=== PATIENT | male | born 1970 | race Two or more races ===

== ENCOUNTER → 2017-01-17 | Outpatient (REF) | payer OTHER ==
[2017-01-17 20:17] LABS: BASO % 0.9 % (0.0-1.0); EOS % 1.2 % (0.0-3.0); LARGE UNSTAINED CELL # 0.1 K/mm3 (0.0-0.4); LARGE UNSTAINED CELL % 4.2 % (0.0-4.0); LYMPH % 30.3 % (24.0-44.0); MEAN CORPUSCULAR HEMOGLOBIN 31.4 pg (27.0-33.0); MEAN CORPUSCULAR HGB CONC 34.1 g/dl (32.0-36.5); MEAN CORPUSCULAR VOLUME 92.1 fl (80.0-96.0); MONO # 0.2 K/mm3 (0.0-0.8); MONO % 5.3 % (0.0-5.0); NEUTROPHILS # 1.9 K/mm3 (1.8-7.7); NEUTROPHILS % 58.1 % (36.0-66.0); PLATELET COUNT, AUTOMATED 214 k/mm3 (150-450); RED CELL DISTRIBUTION WIDTH 12.2 % (11.5-14.5); WHITE BLOOD COUNT 3.2 K/mm3 (4.0-10.0)
[2017-01-21 00:07] LABS: Lyme Disease IgG Ab 18 kDa Ban Absent (.); Lyme Disease IgG Ab 23 kDa Ban Absent (.); Lyme Disease IgG Ab 28 kDa Ban Absent (.); Lyme Disease IgG Ab 30 kDa Ban Absent (.); Lyme Disease IgG Ab 39 kDa Ban Present (.); Lyme Disease IgG Ab 41 kDa Ban Present (.); Lyme Disease IgG Ab 45 kDa Ban Present (.); Lyme Disease IgG Ab 58 kDa Ban Absent (.); Lyme Disease IgG Ab 66 kDa Ban Present (.); Lyme Disease IgG Ab 93 kDa Ban Absent (.); Lyme Disease IgG West Blot Int Negative (.); Lyme Disease IgG/IgM Antibodie 2.56 ISR (0.00-0.90); Lyme Disease IgM Ab 23 kDa Ban Present (.); Lyme Disease IgM Ab 39 kDa Ban Present (.); Lyme Disease IgM Ab 41 kDa Ban Present (.); Lyme Disease IgM West Blot Int Positive (.)
== END ==
LOC: M SFHCLERA 17:33
PROVIDERS: ATTEND Nurse Practitioner Family
DX: R21 Rash and other nonspecific skin eruption (principal)

== ENCOUNTER → 2021-04-04 | Outpatient (CLI) | payer OTHER | LOC: M LABSMTC 09:39 | PROVIDERS: ATTEND Anesthesiology | DX: Z01.818 Encounter for other preprocedural examination (principal); Z11.52 Encounter for screening for COVID-19 ==

== ENCOUNTER 2021-04-09 09:32 | Day surgery (SDC) | payer OTHER ==
[~2021-04-09] VITALS: Ht 180.3 cm; Wt 79.8 kg
--- OUTSIDE RECORDS SUMMARY | 2021-04-09 09:36 | CCD | Continuity of Care Document ---
Author Author Michael AGUIRRE Organization Unknown Address [address] [facility], [address] [place] [address] Phone [phone] Care Team Providers Care Coat Ironer Hand Name Role Phone Tomi Mohan AUTM [phone] Ada Schmidt D.O. AUTM Problems Description No Information Available Social History Type Date Description Comments Sex Unknown ETOH Use 1-2 A Day Recreational Drug Use Denies Drug Use Tobacco Use Start: Unknown Denies Smoking Allergies, Adverse Reactions, Alerts Description No Known Drug Allergies Medications Description No Active Medications Immunizations Description No Information Available Vital Signs Date Vital Result Comment 02/03/2021 11:10am BP Systolic 138 mmHg BP Diastolic 84 mmHg Body Temperature 99.3 F Height 72 inches 6'0" Weight 181.50 lb BMI (Body Mass Index) 24.6 kg/m2 [place] Body Weight 160 lb Weight 82.328 kg BSA (Body Surface Area) 2.04 m2 Results Description No Information Available Procedures Description No Information Available Medical Devices Description No Information Available Encounters Description No Information Available Assessments Date Code Description Provider 02/03/2021 Z12.11 Encounter for screening for yoon gnant neoplasm of colon NAINA Ramirez Plan of Treatment Future Appointment(s):* 04/23/2021 9:45 am - NAINA Ramirez at [facility] * 04/09/2021 11:15 am - Rafi Kern JR, MD at [facility] 02/03/2021 - NAINA Ramirez* Z12.11 Encounter for screening for malignant neoplasm of colon Functional Status Description No Information Available Mental Status Description No Information Available Referrals Refer to Reason for Referral Status Appt Date Rafi Kern JR, MD SCHED COLONOSCOPY Scheduled 02/[address] [address] [phone] Rafi Kern JR, MD COLONOSCOPY Created [address] [address] [phone]
--- OUTSIDE RECORDS SUMMARY | 2021-04-09 09:36 | CCD | Continuity of Care Document ---
Author Author Michael AGUIRRE Organization Unknown Address [address] [facility], [address] [place] [address] Phone [phone] Care Team Providers Care Regulatory Law Specialist Name Role Phone Tomi Mohan AUTM [phone] Ada Schmidt D.O. AUTM [phone] Problems Description No Information Available Social History [...] lb BMI (Body Mass Index) 24.6 kg/m2 [place] Body Weight 160 lb Weight 82.328 kg [...] 04/23/2021 9:45 am - NAINA Ramirez at [facility] * 04/09/2021 11:15 am - Rafi Kern JR, MD at [facility] 02/03/2021 - NAINA Ramirez* Z12.11 Encounter for screening for malignant neoplasm of colon Functional Status Description No Information Available Mental Status Description No Information Available Referrals Refer to Reason for Referral Status Appt Date Rafi Kern JR, MD SCHED COLONOSCOPY Scheduled 02/[address] [address] [phone] Rafi Kern JR, MD COLONOSCOPY Created [address] [address] [phone]
--- OUTSIDE RECORDS SUMMARY | 2021-04-09 09:36 | CCD ---
Continuity of Care Document (CCD) Created on: 02/03/2021 EllisMichael dela cruz External Reference #: [id number] : [id number] Sex: Female Author Author Michael AGUIRRE Organization Unknown Address [address] [facility], [address] [place] [address] Phone [phone] Care Team Providers Care Telesales Consultant Name Role Phone Tomi Mohan AUTM [phone] Ada Schmidt D.O. AUTM [phone] Problems Description No Information Available Social [...] lb BMI (Body Mass Index) 24.6 kg/m2 [place] Body Weight 160 lb Weight 82.328 kg [...] 04/23/2021 9:45 am - NAINA Ramirez at [facility] * 04/09/2021 11:15 am - Rafi Kern JR, MD at [facility] 02/03/2021 - NAINA Ramirez* Z12.11 Encounter for screening for malignant neoplasm of colon Functional Status Description No Information Available Mental Status Description No Information Available Referrals Refer to Reason for Referral Status Appt Date Rafi Kern JR, MD SCHED COLONOSCOPY Scheduled 02/[address] [address] [phone] Rafi Kern JR, MD COLONOSCOPY Created [address] [address] [phone]
--- OUTSIDE RECORDS SUMMARY | 2021-04-09 09:36 | CCD | Continuity of Care Document ---
Author Author Michael WEN D.O. Organization Unknown Address [address] [place] [address] Phone [phone] Care Team Providers Care Freight Receiver Name Role Phone Rafi Kern M.D. AUTM [phone] Problems Description No Information Available Social History Type Date Description Comments Sex Unknown Tobacco Use Start: Unknown Current Smokeless Tobacco User, Uses Occasionally ETOH Use Consumed 1 six pack of beer per week in the past Recreational Drug Use Denies Drug Use Tobacco Use Start: Unknown Patient has never smoked Smoking Status Reviewed: 01/19/21 Patient has never smoked Sun Exposure Does not use sunscreen Seat Belt/Car Seat Always uses seat belt Allergies, Adverse Reactions, Alerts Description No Known Drug Allergies Medications Description No Active Medications Immunizations Description No Information Available Vital Signs Date Vital Result Comment 01/19/2021 8:59am BP Systolic 130 mmHg BP Diastolic 80 mmHg Height 70.5 inches 5'10.50" Weight 184.00 lb BMI (Body Mass Index) 26.0 kg/m2 Heart Rate 69 /min Respiratory Rate 12 /min Body Temperature 97.5 F O2 % BldC Oximetry 98 % [place] Body Weight 166 lb 07/22/2020 9:19am BP Systolic 130 mmHg BP Diastolic 74 mmHg Height 70.5 inches 5'10.50" Weight 191.00 lb BMI (Body Mass Index) 27.0 kg/m2 Heart Rate 79 /min Respiratory Rate 18 /min Body Temperature 97.1 F O2 % BldC Oximetry 98 % [place] Body Weight 166 lb Results Test Acquired Date Facility Test Result H/L Range Note Coronavirus 2019 Nasopharygeal 04/04/2021 [facility] Outpa tient Testing (Registration) [address] [place], [place] [id number] [phone] Coronavirus 2019 Nasopharygeal ASSAY INFORMATIO <SEE N OTE> 1 1 ASSAY INFORMATION: Real Time RT-PCR NOTE: The COVID-19 assay has been cleared by the U.S. Food and Drug Administration under the Emergency Use Authorization (EUA). [employer] and [employer] are designated as high complexity laboratories by the Clinical Laboratory Improvement Amendments of 1988(CLIA) and are qualified to perform this test. Not Detected Procedures Date Code Description Status 01/19/2021 73880 Preventive Visit Est 40-64 Yrs C ompleted Medical Devices Description No Information Available Encounters Type Date Location Provider Dx Diagnosis Office Visit 01/19/2021 9:00a [facility] NAINA Brooks Z00.00 Encntr for general adult med ical exam w/o abnormal findings Z12.11 Encounter for screening for malignant neoplasm of colon Assessments Date Code Description Provider 01/19/2021 Z00.00 Encounter for genera l adult medical examination without abnormal findings NAINA Brooks 01/19/2021 Z12.11 Encounter for screening for yoon gnant neoplasm of colon NAINA Brooks Plan of Treatment Future Appointment(s):* 01/20/2022 8:00 am - NAINA Brooks at [facility] 01/19/2021 - NAINA Brooks* Z00.00 Encounter for general adult medical examination without abnormal findings* Comments:* Your exam was unremarkable today. We will set you up for colonoscopy. Call for any concerns. * Follow up:* Annually. * Z12.11 Encounter for screening for malignant neoplasm of colon* Referral:* Rafi Kern M.D., Surgery,General Functional Status Description No Information Available Mental Status Description No Information Available Referrals Refer to Dr Reason for Referral Status Appt Date Rafi Kern M.D. 50 year old in need of initi al screening colonoscopy. Please eval and treat. Asymptomatic, with no significant family history. Closed 02/03/[address] [place] [address] [phone]
--- OUTSIDE RECORDS SUMMARY | 2021-04-09 09:36 | CCD | Continuity of Care Document ---
Author Author Michael HATCH [place] Organization Unknown Address [address] [place] [address] [address] [place] [address] Phone [phone] Care Team Providers Care Dinkey Motor Operator Name Role Phone Rafi Kern M.D. [facility] [phone] Problems Description No Information Available Social History [...] F O2 % BldC Oximetry 98 % [place] Body Weight 166 lb 07/22/2020 9:19am BP Systolic 130 mmHg BP Diastolic 74 mmHg Height 70.5 inches 5'10.50" Weight 191.00 lb BMI (Body Mass Index) 27.0 kg/m2 Heart Rate 79 /min Respiratory Rate 18 /min Body Temperature 97.1 F O2 % BldC Oximetry 98 % [place] Body Weight 166 lb Results Description No Information Available Procedures Date Code Description Status 01/19/2021 37696 Preventive Visit Est 40-64 Yrs C ompleted Medical Devices Description No Information Available Encounters Type Date Location Provider Dx Diagnosis Office Visit 01/19/2021 9:00a [facility] NAINA Brooks Z00.00 Encntr for general adult [...] 01/20/2022 8:00 am - NAINA Brooks at [facility] 01/19/2021 - NAINA Brooks* Z00.00 Encounter for [...] treat. Asymptomatic, with no significant family history. Sent [address] [address] [phone]
--- OUTSIDE RECORDS SUMMARY | 2021-04-09 09:36 | CCD | Continuity of Care Document ---
Author Author Michael HATCH Organization Unknown Address [address] [place] [address] [address] [place] [address] Phone [phone] Problems Description No Information Available Social History [...] F O2 % BldC Oximetry 98 % [place] Body Weight 166 lb 07/22/2020 9:19am BP Systolic 130 mmHg BP Diastolic 74 mmHg Height 70.5 inches 5'10.50" Weight 191.00 lb BMI (Body Mass Index) 27.0 kg/m2 Heart Rate 79 /min Respiratory Rate 18 /min Body Temperature 97.1 F O2 % BldC Oximetry 98 % [place] Body Weight 166 lb Results Description No Information Available Procedures Description No Information Available Medical Devices Description No Information Available Encounters Description No Information Available Assessments Date Code Description Provider 01/19/2021 Z00.00 Encounter for genera l adult medical examination without abnormal findings NAINA Brooks 01/19/2021 Z12.11 Encounter for screening for yoon gnant neoplasm of colon NAINA Brooks Plan of Treatment Future Appointment(s):* 01/20/2022 8:00 am - NAINA Brooks at [facility] 01/19/2021 - NAINA Brooks* Z00.00 Encounter for [...] treat. Asymptomatic, with no significant family history. Created [address] [address] [phone]
--- OUTSIDE RECORDS SUMMARY | 2021-04-09 09:36 | CCD | Continuity of Care Document ---
Author Author Michael AGUIRRE Organization Unknown Address [address] [facility], [address] [place] [address] Phone [phone] Care Team Providers Care Coring Machine Operator Name Role Phone Tomi Mohan AUTM [phone] Ada Schmidt D.O. AUTM Problems Description No [...] lb BMI (Body Mass Index) 24.6 kg/m2 [place] Body Weight 160 lb Weight 82.328 kg BSA (Body Surface Area) 2.04 m2 Results Description No Information Available Procedures Date Code Description Status 02/03/2021 03573 Office/Outpatient New Low MDM 30 -44 Minutes Completed Medical Devices Description No Information Available Encounters Type Date Location Provider Dx Diagnosis Office Visit 02/03/2021 11:15a [facility] NAINA Moore Z12.11 Encounter for screening for malignant ne oplasm of colon Assessments Date Code Description Provider 02/03/2021 Z12.11 Encounter for screening for yoon gnant neoplasm of colon NAINA Ramirez Plan of Treatment Future Appointment(s):* 04/23/2021 9:45 am - NAINA Ramirez at [facility] * 04/09/2021 11:15 am - Rafi Kern JR, MD at [facility] 02/03/2021 - NAINA Ramirez* Z12.11 Encounter for screening for malignant neoplasm of colon Functional Status Description No Information Available Mental Status Description No Information Available Referrals Refer to Reason for Referral Status Appt Date Rafi Kern JR, MD SCHED COLONOSCOPY Scheduled 02/[address] [address] [phone] Rafi Kern JR, MD COLONOSCOPY Created [address] [address] [phone]
--- OUTSIDE RECORDS SUMMARY | 2021-04-09 09:37 | CCD ---
Author Author [facility] Organization [facility] Address Unknown Phone Unavailable Care Team Providers Care Hand Bulldozer Name Role Phone Marques, Tomi PA Unavailable Unavailable Marques, Tomi PA Unavailable Unavailable Marques, Tomi PA Unavailable Unavailable Marques, Tomi PA Unavailable Unavailable Marques, Tomi PA Unavailable Unavailable Marques, Tomi PA Unavailable Unavailable Marques, Tomi PA Unavailable Unavailable Marques, Tomi PA Unavailable Unavailable Marques, Tomi PA Unavailable Unavailable Marques, Tomi PA Unavailable Unavailable Marques, Tomi PA Unavailable Unavailable Marques, Tomi PA Unavailable Unavailable Marques, Tomi PA Unavailable Unavailable Marques, Tomi PA Unavailable Unavailable Marques, Tomi PA Unavailable Unavailable Marques, Tomi PA Unavailable Unavailable Marques, Tomi PA Unavailable Unavailable Marques, Tomi PA Unavailable Unavailable Marques, Tomi PA Unavailable Unavailable Marques, Tomi PA Unavailable Unavailable Marques, Tomi PA Unavailable Unavailable Marques, Tomi PA Unavailable Unavailable Marques, Tomi PA Unavailable Unavailable Marques, Tomi PA Unavailable Unavailable Marques, Tomi PA Unavailable Unavailable Marques, Tomi PA Unavailable Unavailable Marques, Tomi PA Unavailable Unavailable Marques, Tomi PA Unavailable Unavailable Marques, Tomi PA Unavailable Unavailable Marques, Tomi PA Unavailable Unavailable Marques, Tomi PA Unavailable Unavailable Marques, Tomi PA Unavailable Unavailable Marques, Tomi PA Unavailable Unavailable Marques, Tomi PA Unavailable Unavailable Marques, Tomi PA Unavailable Unavailable Marques, Tomi PA Unavailable Unavailable Marques, Tomi PA Unavailable Unavailable Marques, Tomi PA Unavailable Unavailable Marques, Tomi PA Unavailable Unavailable Marques, Tomi PA Unavailable Unavailable Marques, Tomi PA Unavailable Unavailable Marques, Toim PA Unavailable Unavailable Marques, Tomi PA Unavailable Unavailable Marques, Tomi PA Unavailable Unavailable Marques, Tomi PA Unavailable Unavailable Marques, Tomi PA Unavailable Unavailable Marques, Tomi PA Unavailable Unavailable Marques, Tomi PA Unavailable Unavailable Marques, Tomi PA Unavailable Unavailable Marques, Tomi PA Unavailable Unavailable Marques, Tomi PA Unavailable Unavailable Marques, Tomi PA Unavailable Unavailable Marques, Tomi PA Unavailable Unavailable Marques, Tomi PA Unavailable Unavailable Varghese, L Jennifer RPA Unavailable Unavailable Varghese, L Jennifer RPA Unavailable Unavailable Varghese, L Jennifer RPA Unavailable Unavailable Varghese, L Jennifer RPA Unavailable Unavailable Varghese, L Jennifer RPA Unavailable Unavailable Varghese, L Jennifer RPA Unavailable Unavailable Varghese, L Jennifer RPA Unavailable Unavailable Varghese, L Jennifer RPA Unavailable Unavailable Varghese, L Jennifer RPA Unavailable Unavailable Varghese, L Jennifer RPA Unavailable Unavailable Varghese, L Jennifer RPA Unavailable Unavailable Varghese, L Jennifer RPA Unavailable Unavailable Varghese, L Jennifer RPA Unavailable Unavailable Varghese, L Jennifer RPA Unavailable Unavailable Varghese, L Jennifer RPA Unavailable Unavailable Varghese, L Jennifer RPA Unavailable Unavailable Varghese, L Jennifer RPA Unavailable Unavailable Varghese, L Jennifer RPA Unavailable Unavailable Varghese, L Jennifer RPA Unavailable Unavailable Varghese, L Jennifer RPA Unavailable Unavailable Varghese, L Jennifer RPA Unavailable Unavailable Varghese, L Jennifer RPA Unavailable Unavailable Varghese, L Jennifer RPA Unavailable Unavailable Varghese, L Jennifer RPA Unavailable Unavailable Varghese, L Jennifer RPA Unavailable Unavailable Varghese, L Jennifer RPA Unavailable Unavailable Varghese, L Jennifer RPA Unavailable Unavailable Varghese, L Jennifer RPA Unavailable Unavailable Varghese, L Jennifer RPA Unavailable Unavailable Varghese, L Jnenifer RPA Unavailable Unavailable Varghese, L Jennifer RPA Unavailable Unavailable Varghese, L Jennifer RPA Unavailable Unavailable Marques, Tomi PA Unavailable Unavailable Marques, Tomi PA Unavailable Unavailable Marques, Tomi PA Unavailable Unavailable Marques, Tomi PA Unavailable Unavailable Marques, Tomi PA Unavailable Unavailable Marques, Tomi PA Unavailable Unavailable Marques, Tomi PA Unavailable Unavailable Marques, Tomi PA Unavailable Unavailable Marques, Tomi PA Unavailable Unavailable Marques, Tomi PA Unavailable Unavailable Marques, Tomi PA Unavailable Unavailable Marques, Tomi PA Unavailable Unavailable Marques, Tomi PA Unavailable Unavailable Marques, Tomi PA Unavailable Unavailable Marques, Tomi PA Unavailable Unavailable Marques, Tomi PA Unavailable Unavailable Marques, Tomi PA Unavailable Unavailable Marques, Tomi PA Unavailable Unavailable Marques, Tomi PA Unavailable Unavailable Marques, Tomi PA Unavailable Unavailable Marques, Tomi PA Unavailable Unavailable Marques, Tomi PA Unavailable Unavailable Marques, Tomi PA Unavailable Unavailable Marques, Tomi PA Unavailable Unavailable Marques, Tomi PA Unavailable Unavailable Marques, Tomi PA Unavailable Unavailable Marques, Tomi PA Unavailable Unavailable Marques, Tomi PA Unavailable Unavailable Marques, Tomi PA Unavailable Unavailable Marques, Tomi PA Unavailable Unavailable Marques, Tomi PA Unavailable Unavailable Marques, Tomi PA Unavailable Unavailable Marques, Tomi PA Unavailable Unavailable Marques, Tomi PA Unavailable Unavailable Marques, Tomi PA Unavailable Unavailable Marques, Tomi PA Unavailable Unavailable Marques, Tomi PA Unavailable Unavailable Marques, Tomi PA Unavailable Unavailable Marques, Tomi PA Unavailable Unavailable Marques, Tomi PA Unavailable Unavailable Marques, Tomi PA Unavailable Unavailable Marques, Tomi PA Unavailable Unavailable Marques, Tomi PA Unavailable Unavailable Marques, Tomi PA Unavailable Unavailable Marques, Tomi PA Unavailable Unavailable Marques, Tomi PA Unavailable Unavailable Marques, Tomi PA Unavailable Unavailable Marques, Tomi PA Unavailable Unavailable Marques, Tomi PA Unavailable Unavailable Marques, Tomi PA Unavailable Unavailable Marques, Tomi PA Unavailable Unavailable Marques, Tomi PA Unavailable Unavailable Marques, Tomi PA Unavailable Unavailable Marques, Tomi PA Unavailable Unavailable Re-disclosure Warning The records that you are about to access may contain information from federally-assisted alcohol or drug abuse programs. If such information is present, then the following federally mandated warning applies: This information has been disclosed to you from records protected by federal confidentiality rules (42 CFR part 2). The federal rules prohibit you from making any further disclosure of this information unless further disclosure is expressly permitted by the written consent of the person to whom it pertains or as otherwise permitted by 42 CFR part 2. A general authorization for the release of medical or other information is NOT sufficient for this purpose. The Federal rules restrict any use of the information to criminally investigate or prosecute any alcohol or drug abuse patient.The records that you are about to access may contain highly sensitive health information, the redisclosure of which is protected by Article 27-F of the [facility] Public Health law. If you continue you may have access to information: Regarding HIV / AIDS; Provided by facilities licensed or operated by the [facility] Office of Mental Health; or Provided by the [facility] Office for People With Developmental Disabilities. If such information is present, then the following [facility] mandated warning applies: This information has been disclosed to you from confidential records which are protected by state law. State law prohibits you from making any further disclosure of this information without the specific written consent of the person to whom it pertains, or as otherwise permitted by law. Any unauthorized further disclosure in violation of state law may result in a fine or mcfp sentence or both. A general authorization for the release of medical or other information is NOT sufficient authorization for further disc losure. Family History Family Member Name Family Member Gender Family Member Status Date o f Status Description Data Source(s) Unknown Male Problem [facility] ([facility]) Encounters Encounter Providers Location Date Indications Data Source(s ) Outpatient Attender: Jennifer Pineda/George/Marcia price 02/03/2021 11:15:00 AM EDT [facility] ([facility] Outpatient Attender: Tomi CHEW Family Medicine [facility] 01/19/2021 09:00:00 AM EDT [facility] ([facility]) Outpatient Attender: Tomi CHEW Family Medicine [facility] 07/22/2020 08:20:00 AM EST [facility] ([facility]) Outpatient Attender: Tomi Mohan PAConsultant: Tomi CHEW 05/07/2020 12:07:00 PM EST - 05/07/2020 01:07:[address] [facility] Outpatient Attender: Tomi CHEW Family Medicine [facility] 04/28/2020 01:40:00 PM EST [facility] ([facility]) Immunizations Vaccine Date Status Description Data Source(s) COVID-19 VACCINE Moderna 09/04/2020 12:00:00 AM EST completed [facility] Vaccine Series Complete: YESThis Data wa s Submitted to [facility] Via [employer]. COVID-19 VACCINE Moderna 08/07/2020 12:00:00 AM EST completed [facility] Vaccine Series Complete: NOThis Data was Submitted to [facility] [employer]. Medications Medication Brand Name Start Date Product Form Dose Route Admi nistrative Instructions Pharmacy Instructions Status Indications Reaction Description Data Source(s) Doxycycline Monohydrate 100 MG Oral Capsule Doxycycline [place] hydrate 05/11/2020 12:00:00 AM EST ORAL completed [facility] ([facility]) Insurance Providers Payer name Policy type / Coverage type Policy ID Covered democrat ID Covered democrat's relationship to soni Policy Soni Plan Information UMR [facility] [id number] [place]2 [id number] [employer] [id number] [place] [id number] [employer] [id number] [place] [id number] UMR -O/P [id number] 01 [id number] [employer] [id number] SPO [id number] [employer] [id number] [place] [id number] [employer] PPO O [id number] P [id number] [employer] [id number] [place]2 [id number] [facility] [id number] S [id number] [facility] [id number] S [id number] Problems, Conditions, and Diagnoses Code Display Name Description Problem Type Effective Dates Data Source(s) [id number] Encounter for screening for lipoid disor ders Encounter for screening for lipoid disorders Diagnosis 05/07/2020 12:07:00 PM [facility] Z125 Encounter for screening for malignant ne oplasm of prostate Encounter for screening for malignant neoplasm of prostate Diagnosis 0 12:07:00 PM [facility] Z131 Encounter for screening for diabetes violet litus Encounter for screening for diabetes mellitus Diagnosis 05/07/2020 12:07:00 PM [facility] [id number] Pain in right knee Pain in right knee Diagnosis 04/2020 12:07:00 PM EST [facility] Surgeries/Procedures Procedure Description Date Indications Data Source(s) OFFICE OUTPATIENT NEW 30 MINUTES 02/03/2021 12:00:00 A M EDT [facility] ([facility], ) PERIODIC PREVENTIVE MED EST PATIENT 40-64YRS 12:00:00 AM EDT [facility] ([facility]) Results ID Date Data Source [id number] 04/04/2021 09:30:00 AM EDT [facility] ([facility]) Name Value Range Interpretation Code Description Data Karissa rce(s) Supporting Document(s) Coronavirus 2019 Nasopharygeal Laboratory test result [facility] ([facility]) ASSAY INFORMATION: Real Time RT-PCR NOTE: The COVID-19 assay has been cleared by the U.S. Food and Drug Administration under the Emergency Use Authorization (EUA). [facility] and [facility] are designated as high complexity laboratories by the Clinical Laboratory Improvement Amendments of 1988(CLIA) and are qualified to perform this test. Not Detected ID Date Data Source [id number] 05/07/2020 02:30:00 PM EST [facility] ([facility]) Name Value Range Interpretation Code Description Data Karissa rce(s) Supporting Document(s) Urate [Mass/volume] in Serum or Plasma Laboratory test result [facility] ([facility]) ID Date Data Source [id number] 05/07/2020 12:13:00 PM EST [facility] ([facility]) Name Value Range Interpretation Code Description Data Karissa rce(s) Supporting Document(s) IgG P93 Ab. Laboratory test result M [facility] ([facility]) Lyme Disease Ab, Quant,IgM 1.27 index 0.00-0.79 Above high normal [facility] ([facility]) <content>Negative <0.80</content >
<content>Equivocal 0.80 - 1.19</content>
<content>Positive >1.19</content>
<content>IgM levels may peak at 3-6 weeks post infection, then</content>
<content>gradually decline.</content>
<content></content> Lyme IgG/IgM Ab 1.01 ISR 0.00-0.90 Above high normal [place] ([facility]) <content>Negative <0.91</content >
<content>Equivocal 0.91 - 1.09</content>
<content>Positive >1.09</content>
<content></content> IgG P66 Ab. Laboratory test result [facility] ([facility]) IgG P58 Ab. Laboratory test result Abnormal (applies to non-numeric results) [facility] ([facility]) IgG P45 Ab. Laboratory test result [facility] ([facility]) IgG P41 Ab. Laboratory test result Abnormal (applies to non-numeric results) [facility]) IgG P39 Ab. Laboratory test result Abnormal (applies to non-numeric results) [facility]) IgG P30 Ab. Laboratory test result [facility] ([facility]) IgG P28 Ab. Laboratory test result [facility] ([facility]) IgG P23 Ab. Laboratory test result [facility] ([facility]) IgM P41 Ab. Laboratory test result [facility] ([facility]) IgG P18 Ab. Laboratory test result Abnormal (applies to non-numeric results) [facility] ([facility]) Laboratory test finding (navigational concept) Laboratory test result [facility] ([facility]) Positive: 5 of the following Borrelia-specific bands: 18,23,28,30,39,41,45,58, 66, and 93. Negative: No bands or banding patterns which do not meet positive criteria. Laboratory test finding (navigational concept) Laboratory test result [facility] ([facility]) Note: An equivocal or positive EIA resul t followed by a negative Line Blot result is considered NEGATIVE. An equivocal or positive EIA result followed by a positive Line Blot is considered POSITIVE by the CDC. Positive: 2 of the following bands: 23,39 or 41 Negative: No bands or banding patterns which do not meet positive criteria. Criteria for positivity are those recommended by CDC/ASTPHLD. p23=Osp C, [id number] Note: Sera from individuals with the following may cross react in the Lyme Line Blot assays: other spirochetal diseases (periodontal disease, leptospirosis, relapsing fever, yaws, and pinta); connective autoimmune (Rheumatoid Arthritis and Systemic Lupus Erythematosus and also individuals with Antinuclear Antibody); other infections ([place] Spotted Fever; Blanca-Weber Virus, and Cytomegalovirus). IgM P39 Ab. [facility] IgM P23 Ab. Laboratory test result Abnormal (applies to non-numeric results) [facility]) ID Date Data Source [id number] 05/07/2020 12:13:00 PM [facility]) Name Value Range Interpretation Code Description Data Karissa rce(s) Supporting Document(s) Prostate Specific Ag,Serum 0.5 ng/mL 0.0-4.0 [facility]) Michelle ECLIA methodology. According to the [employer] [place] [employer], Serum PSA should decrease and remain at undetectable levels after radical prostatectomy. The AUA defines biochemical recurrence as an initial PSA value 0.2 ng/mL or greater followed by a subsequent confirmatory PSA value 0.2 ng/mL or greater. Values obtained with different assay methods or kits cannot be used interchangeably. Results cannot be interpreted as absolute evidence of the presence or absence of malignant disease. Laboratory test finding (navigational concept) Laboratory test result [facility]) The percent free PSA is performed on a r eflex basis only when the total PSA is between 4.0 and 10.0 ng/mL. ID Date Data Source [id number] 05/09/2020 09:02:00 PM [facility] Name Value Range Interpretation Code Description Data Karissa rce(s) Supporting Document(s) Borrelia burgdorferi IgG+IgM Ab [Units/volume] in Serum 1.01 ISR 0. 00-0.[address] [facility] Negative <0.91 Equivocal 0.91 - 1.09 Positive >1.09 Borrelia burgdorferi IgM Ab [Units/volume] in Serum by Immun oassay 1.27 index 0.00-0.[address] [facility] Negative <0.80 Equivocal 0.80 - 1.19 Positive >1.19 IgM levels may peak at 3-6 weeks post infection, then gradually decline. Borrelia burgdorferi 93kD IgG Ab [Presence] in Serum by Immu noblot (IB) Absent [facility] Borrelia burgdorferi 66kD IgG Ab [Presence] in Serum by Immu noblot (IB) Absent [facility] Borrelia burgdorferi 58kD IgG Ab [Presence] in Serum by Immu noblot (IB) Present A [facility] Borrelia burgdorferi 45kD IgG Ab [Presence] in Serum by Immu noblot (IB) Absent [facility] Borrelia burgdorferi 41kD IgG Ab [Presence] in Serum by Immu noblot (IB) Present A [facility] Borrelia burgdorferi 39kD IgG Ab [Presence] in Serum by Immu noblot (IB) Present A [facility] Borrelia burgdorferi 30kD IgG Ab [Presence] in Serum by Immu noblot (IB) Absent [facility] Borrelia burgdorferi 28kD IgG Ab [Presence] in Serum by Immu noblot (IB) Absent [facility] Borrelia burgdorferi 23kD IgG Ab [Presence] in Serum by Immu noblot (IB) Absent [facility] Borrelia burgdorferi 18kD IgG Ab [Presence] in Serum by Immu noblot (IB) Present A [facility] Borrelia burgdorferi Ab.IgG band pattern [Interpretation] in Serum by Immunoblot (IB) Negative [facility] Posi tive: 5 of the following Borrelia-specific bands: 18,23,28,30,39,41,45,58, 66, and 93. Negative: No bands or banding patterns which do not meet positive criteria. Borrelia burgdorferi 41kD IgM Ab [Presence] in Serum by Immu noblot (IB) Absent [facility] Borrelia burgdorferi 39kD IgM Ab [Presence] in Serum by Immu noblot (IB) Absent [facility] Borrelia burgdorferi 23kD IgM Ab [Presence] in Serum by Immu noblot (IB) Present A [facility] Borrelia burgdorferi Ab.IgM band pattern [Interpretation] in Serum by Immunoblot (IB) Negative [facility] Note: An equivocal or positive EIA resul t followed by a negativeLine Blot result is considered NEGATIVE. An equivocal or positiveEIA result followed by a positive Line Blot is considered POSITIVEby the CDC.Positive: 2 of the following bands: 23,39 or 41Negative: No bands or banding patterns which do not meet positivecriteria.Criteria for positivity are those recommended by CDC/ASTPHLD.p23=Osp C, r44=[id number]:Sera from individuals with the following may cross react in theLyme Line Blot assays: other spirochetal diseases (periodontaldisease, leptospirosis, relapsing fever, yaws, and pinta);connective autoimmune (Rheumatoid Arthritis and Systemic LupusErythematosus and also individuals with Antinuclear Antibody);other infections ([place] Spotted Fever; Blanca-Weber Virus,and Cytomegalov irus). ID Date Data Source [id number] 05/08/2020 03:14:00 PM [facility] Name Value Range Interpretation Code Description Data Karissa rce(s) Supporting Document(s) Prostate specific Ag [Mass/volume] in Serum or Plasma 0.5 ng/mL 0.0- 4.0 [facility] Faveous ECLIA methodology.According to the [employer] [place] [employer], Serum PSA shoulddecrease and remain at undetectable levels after radicalprostatectomy. The AUA defines biochemical recurrence as an initialPSA value 0.2 ng/mL or greater followed by a subsequent confirmatoryPSA value 0.2 ng/mL or greater.Values obtained with different assay methods or kits cannot be usedinterchangeably. Results cannot be interpreted as absolute evidenceof the presence or absence of malignant disease. Reflex Criteria COMMENT [facility] The percent free PSA is performed on a r eflex basis only when thetotal PSA is between 4.0 and 10.0 ng/mL. ID Date Data Source [id number] 05/07/2020 01:16:00 PM [facility] Name Value Range Interpretation Code Description Data Karissa rce(s) Supporting Document(s) Thyrotropin [Units/volume] in Serum or Plasma by Detec tion limit <= 0.05 mIU/L 1.26 uIU/mL 0.47 - 5.01 [facility] ID Date Data Source [id number] 05/07/2020 01:16:00 PM [facility] Name Value Range Interpretation Code Description Data Karissa rce(s) Supporting Document(s) Thyroxine (T4) free index in Serum or Plasma by calculation 1.23 NG/DL 0.93 - 1.70 [facility] ID Date Data Source [id number] 05/07/2020 01:04:[address] [facility] Name Value Range Interpretation Code Description Data Karissa rce(s) Supporting Document(s) Urate [Mass/volume] in Serum or Plasma 4.9 MG/DL 2.5 - 8.5 [facility] ID Date Data Source [id number] 05/07/2020 01:04:00 PM [facility] Name Value Range Interpretation Code Description Data Karissa rce(s) Supporting Document(s) COMPREHENSIVE METABOLIC PANEL [facility] COMPREHENSIVE METABOLIC PANEL Sodium [Moles/volume] in Serum or Plasma 139 mEq/L 134 - 153 [facility] Potassium [Moles/volume] in Serum or Plasma 4.4 mEq/L 3.6 - 5.0 [facility] Chloride [Moles/volume] in Serum or Plasma 102 mEq/L 98 - 107 [facility] Carbon dioxide, total [Moles/volume] in Serum or Plasma 31 MEQ/L 22 - [address] [facility] Glucose [Mass/volume] in Serum or Plasma 101 MG/DL 65 - 110 [facility] BUN 14 MG/DL 7 - 21 [facility] al Creatinine [Mass/volume] in Serum or Plasma 0.8 MG/DL 0.7 - 1.5 [facility] BUN/CREAT 18 8 - 27 [facility] Protein [Mass/volume] in Serum or Plasma 7.1 G/DL 6.3 - 8.2 [facility] Albumin [Mass/volume] in Serum or Plasma 4.8 G/DL 3.9 - 5.0 [facility] Globulin [Mass/volume] in Serum by calculation 2.3 GM/DL 2.4 - 3.[address] [facility] A/G RATIO 2.1 0.8 - 2.0 H [facility] Calcium [Mass/volume] in Serum or Plasma 9.7 MG/DL 8.4 - 10.2 [facility] Bilirubin.total [Mass/volume] in Serum or Plasma <0.7 MG/DL 0.2 - 1.3 [facility] Alkaline phosphatase [Enzymatic activity/volume] in Serum or Plasma 63 U/L 38 - 126 [facility] Aspartate aminotransferase [Enzymatic activity/volume] in Serum or Plasma 15 U/L 5 - 40 [facility] Alanine aminotransferase [Enzymatic activity/volume] in Seru m or Plasma 13 U/L 7 - 56 [facility] Anion gap 3 in Serum or Plasma 6.0 mmol/L 8.0 - 16.[address] [facility] AGE 49 yrs [facility] al NON-AA GFR >60 mL/min [facility] ital AFR AMER GFR >60 mL/min [facility] Male GFR In terprentation 20-49 yrs >60 mL/min Normal 50-59 yrs >56 mL/min Normal 60-69 yrs >49 mL/min Normal 70-79yrs >42 mL/min Normal 80 and above >35 mL/min Normal Female GFR Interpretation 20-39 yrs >60 mL/min Normal 40-49 yrs >58 mL/min Normal 50-59 yrs >51 mL/min Normal 60-69 yrs >45 mL/min Normal 70-79 yrs >39 mL/min Normal 80 and above >32 mL/min Normal ID Date Data Source [id number] 05/07/2020 01:04:[address] [facility] Name Value Range Interpretation Code Description Data Karissa rce(s) Supporting Document(s) CVE PANEL [facility] LIPID PANEL Cholesterol [Mass/volume] in Serum or Plasma 209 MG/DL 131 - [address] [facility] Deprecated Triglyceride [Mass/volume] in Serum or Plasma 101 MG/DL 3 5 - 160 [facility] HDL 61 MG/DL 29 - 86 [facility] al Cholesterol in LDL [Mass/volume] in Serum or Plasma by Direc t assay 128 mg/dL 65 - 175 [facility] Cholesterol.total/Cholesterol in HDL [Mass Ratio] in Serum o r Plasma 3.4 3.4 - 4.[address] [facility] LDL/HDL 2.10 1.00 - 3.55 [facility] ital CVE RISK CHOL/HDL LDL/HDLMEN: 1/2 AVERAGE 3.43 1.00 AVERAGE 4.97 3.55 2X AVERAGE 9.55 6.25 3X AVERAGE 23.99 7.99WOMEN: 1/2 AVERAGE 3.27 1.47 AVERAGE 4.44 3.22 2X AVERAGE 7.05 5.03 3X AVERAGE 11.04 6.14 Procedure Social History Code Duration Value Status Description Data Source(s ) Smoking 01/19/2021 12:00:00 AM EDT Patient has never smoked co mpleted Patient has never smoked [facility] ([facility]) Vital Signs ID Date Data Source UNK Name Value Range Interpretation Code Description Data Source(s) Systolic blood pressure 138 mm[Hg] 138 mm[Hg] M EDENT ([facility]) Body temperature 99.3 [degF] 99.3 [degF] [facility] ([facility]) Body height 72 [in_i] 72 [in_i] [facility] ([facility]) 6'0" Diastolic blood pressure 84 mm[Hg] 84 mm[Hg] [facility] ([facility]) Body weight 181.50 [lb_av] 181.50 [lb_av] MEDEN T ([facility]) Body mass index (BMI) [Ratio] 24.6 kg/m2 24.6 k g/m2 [facility] ([facility]) [place] body weight 160 [lb_av] 160 [lb_av] MEDEN T ([facility]) Body weight 82.328 kg 82.328 kg [facility] ([facility]) Body surface area Derived from formula 2.04 m2 2.04 m2 [facility] ([facility]) Systolic blood pressure 130 mm[Hg] 130 mm[Hg] [facility] Diastolic blood pressure 80 mm[Hg] 80 mm[Hg] [facility] Body height 70.5 [in_i] 70.5 [in_i] [facility] ([facility]) 5'10.50" Body weight 184.00 [lb_av] 184.00 [lb_av] MEDEN T ([facility]) Body mass index (BMI) [Ratio] 26.0 kg/m2 26.0 k g/m2 [facility] Heart rate 69 /min 69 /min [facility] ([facility]) Respiratory rate 12 /min 12 /min [facility] Body temperature 97.5 [degF] 97.5 [degF] [facility] ([facility]) Oxygen saturation in Arterial blood by Pulse oximetry 98 % 98 % [facility] ([facility]) [place] body weight 166 [lb_av] 166 [lb_av] MED[facility] T ([facility]) Body temperature 97.1 [degF] 97.1 [degF] [facility] ([facility]) [place] body weight 166 [lb_av] 166 [lb_av] MED[facility] T ([facility]) Systolic blood pressure 130 mm[Hg] 130 mm[Hg] M EDENT ([facility]) Diastolic blood pressure 74 mm[Hg] 74 mm[Hg] [facility] ([facility]) Body height 70.5 [in_i] 70.5 [in_i] [facility] ([facility]) 5'50" Body weight 191.00 [lb_av] 191.00 [lb_av] MEDEN T ([facility]) Body mass index (BMI) [Ratio] 27.0 kg/m2 27.0 k g/m2 [facility] ([facility]) [facility] 79 /min 79 /[facility] Respiratory rate 18 /min 18 /min [facility] ( [facility]) Oxygen saturation in Arterial blood by Pulse oximetry 98 % 98 % [facility] ([facility]) Respiratory rate 16 /min 16 /min [facility] ( [facility]) Systolic blood pressure 128 mm[Hg] 128 mm[Hg] M EDENT ([facility]) Diastolic blood pressure 80 mm[Hg] 80 mm[Hg] [facility] ([facility]) Oxygen saturation in Arterial blood by Pulse oximetry 99 % 99 % [facility] ([facility]) [place] body weight 166 [lb_av] 166 [lb_av] MEDEN T ([facility]) Body height 70.5 [in_i] 70.5 [in_i] [facility] ([facility]) 5'10.50" Body mass index (BMI) [Ratio] 26.0 kg/m2 26.0 k g/m2 SEAN ([facility]) Body weight 183.50 [lb_av] 183.50 [lb_av] PO T ([facility]) Heart rate 91 /min 91 /min [facility] ([facility]) Body temperature 97.9 [degF] 97.9 [degF] [facility] ([facility])
[2021-04-09] MEDS ORDERED: NS 1,000 ML IV ONE (10:05)
--- NOTE | 2021-04-09 11:16 | ROOR ---
Patient Name: Michael Ellis Procedure Date: 04/09/2021 10:54 AM Date of : 1970 Age: 50 Room: [facility] Gender: Male Note Status: Finalized Procedure: Colonoscopy Indications: Screening for colorectal malignant neoplasm Providers: Rafi Kern Jr, MD Referring MD: Ada WEN DO Requesting Provider: Medicines: Propofol per Anesthesia Complications: No immediate complications. Procedure: Pre-Anesthesia Assessment: - Prior to the procedure, a History and Physical was performed, and patient medications and allergies were reviewed. The patient is competent. The risks and benefits of the procedure and the sedation options and risks were discussed with the patient. All questions were answered and informed consent was obtained. Patient identification and proposed procedure were verified by the physician and the nurse in the pre-procedure area and in the procedure room. Mental Status Examination: alert and oriented. Airway Examination: normal oropharyngeal airway and neck mobility. Respiratory Examination: clear to auscultation. CV Examination: normal. ASA Grade Assessment: II - A patient with mild systemic disease. After reviewing the risks and benefits, the patient was deemed in satisfactory condition to undergo the procedure. The anesthesia plan was to use moderate sedation / analgesia (conscious sedation). Immediately prior to administration of medications, the patient was re-assessed for adequacy to receive sedatives. The heart rate, respiratory rate, oxygen saturations, blood pressure, adequacy of pulmonary ventilation, and response to care were monitored throughout the procedure. The physical status of the patient was re-assessed after the procedure. The Colonoscope was introduced through the anus and advanced to the cecum, identified by appendiceal orifice and ileocecal valve. The colonoscopy was performed without difficulty. The patient tolerated the procedure well. The quality of the bowel preparation was adequate. Findings: The rectum, recto-sigmoid colon, descending colon, cecum, appendiceal orifice and ileocecal valve appeared normal. Three polyps were found in the descending colon, transverse colon and ascending colon. The polyps were small in size. These polyps were removed with a cold snare. Resection and retrieval were complete. A medium polyp was found in the sigmoid colon. The polyp was removed with a hot snare. Resection and retrieval were complete. Impression: - The rectum, recto-sigmoid colon, descending colon, cecum, appendiceal orifice and ileocecal valve are normal. - Three small polyps in the descending colon, in the transverse colon and in the ascending colon, removed with a cold snare. Resected and retrieved. - One medium polyp in the sigmoid colon, removed with a hot snare. Resected and retrieved. Recommendation: - Discharge patient to home (ambulatory). - Repeat colonoscopy in 5 years for screening purposes. Procedure Code(s): --- Professional --- 59920, Colonoscopy, flexible; with removal of tumor(s), polyp(s), or other lesion(s) by snare technique Diagnosis Code(s): --- Professional --- K63.5, Polyp of colon Z12.11, Encounter for screening for malignant neoplasm of colon CPT copyright 2019 [employer]. All rights reserved. The codes documented in this report are preliminary and upon substation operator helper generation review may be revised to meet current compliance requirements. Rafi Kern MD Rafi Kern Jr, MD 04/09/2021 11:16:14 AM Electronically signed by Rafi Kern Jr, MD Number of Addenda: 0 Note Initiated On: 04/09/2021 10:54 AM Estimated Blood Loss: Estimated blood loss: none.
[2021-04-09 11:37] VITALS: BP 120/79
== END 2021-04-09 11:38 | disposition home or self-care (01) ==
LOC: M OPP 09:32
PROVIDERS: ATTEND Surgery
DX: Z12.11 Encounter for screening for malignant neoplasm of colon (principal); Z80.0 Family history of malignant neoplasm of digestive organs; D12.6 Benign neoplasm of colon, unspecified; A69.20 Lyme disease, unspecified; Z80.1 Family history of malignant neoplasm of trachea, bronchus and lung; F17.220 Nicotine dependence, chewing tobacco, uncomplicated

== ENCOUNTER → 2024-04-10 | Outpatient (CLI) | payer OTHER | LOC: M RAD 08:49 | PROVIDERS: ATTEND Nurse Practitioner Adult Health | DX: M50.10 Cervical disc disorder with radiculopathy, unspecified cervical region (principal) ==

== ENCOUNTER → 2024-07-10 | Outpatient (CLI) | payer OTHER | LOC: M PLAIMG 14:20 | PROVIDERS: ATTEND Nurse Practitioner Adult Health | DX: M79.672 Pain in left foot (principal) ==